=== PATIENT | male | born 1955 | race Caucasian/White ===

== ENCOUNTER 2021-02-15 12:52 | Emergency (ER) | payer SELFPAY ==
--- NOTE | 2021-02-15 13:01 | ED.GENADUL_ITS ---
Discharge Plan Disposition Patient Disposition: HOME Condition: Stable Discharge Details Clinical Impression: Cellulitis of scrotum Primary Care Provider: Unknown,Unknown ED Provider: Francoise Toth Home Meds and New Rx's Prescriptions: New clindamycin HCl 150 mg capsule 450 mg PO QID 10 Days Qty: 120 RF: 0 Continued levothyroxine 50 mcg Tablet 50 mcg PO DAILY RF: 0 bupropion HCl [Wellbutrin XL] 300 mg Tablet Extended Release 24 Hr 300 mg PO DAILY RF: 0 tadalafil [Cialis] 20 mg Tablet 20 mg PO DAILY RF: 0 Discontinued sulfamethoxazole-trimethoprim [Bactrim DS] 800-160 mg Tablet 1 tab PO BID RF: 0 Discharge Instructions Instructions: Cellulitis (ED) Additional Instructions: Keep the area clean and dry and wear loose fitting clothing. If you notice a raised red area in the center, you can apply warm compresses a few times daily for 20 minutes at a time. Drink plenty of fluids and get plenty of rest. Alternate tylenol and motrin as needed and directed for pain. Stop taking the bactrim. Your prescription has been sent electronically to your pharmacy. Call the [facility] to make sure your prescription is ready before pickup. Take the prescription as directed You will receive a call from care management regarding a follow-up appointment with your primary care doctor within the next week for reevaluation and to establish care. You were given urology follow-up information if needed. Return immediately to the emergency department if you develop any worsening or new concerning symptoms. Referrals: Jose Reyna MD [ [facility] STAFF PHYSICIAN] - Discharge Data Discharge Date/Time-TO BE ENTERED AT DEPARTURE: 02/15/21 17:54 Discharge Physician: Francoise Toth Medical Decision Making 65-year-old male presents with left-sided testicular pain for the past 5 days. He is currently on Bactrim for possible epididymitis per a walk-in clinic from 2 days ago. Patient appears comfortable and nontoxic. He has a left superior testicular cellulitis with an open draining wound in center. There is induration but no fluctuance or crepitus. Does not appear consistent with a necrotizing fasciitis. As patient is already on oral antibiotics, will obtain screening labs and ultrasound. Will start clindamycin IV. Labs reviewed and note a normal white blood cell count. Normal electrolytes. Urinalysis negative. US notes L hydrocele and varicocele with findings likely c/w cellulitis but no evidence of abscess, torsion or epididymitis. Pt reassessed and he feels better. He declined pain medication here. Reassessment of the scrotum notes findings c/w cellulitis but no abscess or signs of necrotizing fasciitis. Pt felt good to go home. Will treat with clindamycin. He was given urology follow up information. Pt placed on care management list for a pcp to establish care and for follow up. Usual and customary return precautions given prior to discharge. Medical Records Medical records reviewed: Yes I reviewed the patient's medical records. Imaging Data Radiologic Study: Radiologist's impression: US Scrotum Exam date and time: 02/15/2021 1:21 PM Age: 65 years old Clinical indication: Other: Left testicular pain, R/O torsion, epididymitis TECHNIQUE: Imaging protocol: Real-time ultrasound of the scrotum and contents with color Doppler and image documentation. COMPARISON: No relevant prior studies available. FINDINGS: Right testicle: Right testicle measures 5.1 x 3.8 x 2.4 cm. No mass. No torsion. Normal vascular flow. Left testicle: Left testicle measures 4.7 x 3.5 x 2.0 cm. No torsion. Normal vascular flow. There is a left cystic appendix measuring 12 x 10 x 10 mm. Additionally seen is evidence of left varicocele measuring up to 4 mm with Valsalva maneuver and left hydrocele measuring 4.3 x 1.0 x 2.5 cm. Epididymides: Normal. Scrotum: Left scrotal wall is upper limits of normal measuring 0.8 cm versus 0.4 cm for the right scrotal wall. IMPRESSION: 1. Normal testicles with normal blood flow with left cystic testicular appendix. 2. Left varicocele. 3. Left hydrocele. 4. Asymmetric thickening of the left scrotal wall likely representing edema/hyperemia. Clinical correlation recommended. Lab Data Lab results reviewed: Yes I reviewed the patient's lab results. Labs: Laboratory Tests Range/Units 02/15/21 02/15/21 02/15/21 13:20 13:37 13:37 WBC (4.4-10.8) 10^3/uL 6.16 RBC (4.36-5.78) 10^6/uL 5.17 Hgb (13.5-17.5) g/dL 15.7 Hct (40.0-50.0) % 46.3 MCV (80-95) fL 89.6 MCH (27.0-33.0) pg 30.4 MCHC (32.0-36.0) % 33.9 RDW (11.8-14.1) % 12.4 Plt Count (130-400) 10^3/uL 177 MPV (8.0-11.0) fL 8.1 Immature Gran % 1.1 Neutrophils % 70.3 Lymphocytes % 13.3 Monocytes % 11.7 Eosinophils % 2.8 Basophils % 0.8 Nucleated RBC % % 0 Absolute Neutrophils (1.2-6.7) 10^3/uL 4.33 Absolute Lymphocytes (1.2-3.4) 10^3/uL 0.82 L Absolute Monocytes (0.1-0.8) 10^3/uL 0.72 Absolute Eosinophils (0.0-0.7) 10^3/uL 0.17 Absolute Basophils (0.0-0.2) 10^3/uL 0.05 Sodium (136-145) mmol/L 142 Potassium (3.5-5.1) mmol/L 4.0 Chloride (98-107) mmol/L 105 Carbon Dioxide (21.0-32.0) mmol/L 30.8 Anion Gap (3-11) mmol/L 6.2 BUN (7-18) mg/dL 14 Creatinine (0.70-1.30) mg/dL 1.2 Estimated GFR/1.73 m2 (mL/min/1.73m2) >= 60.00 Glucose (74-106) mg/dL 115 H Calcium (8.5-10.1) mg/dL 8.9 Total Bilirubin (0.2-1.0) mg/dL 0.5 AST (15-37) U/L 22 ALT (16-63) U/L 34 Alkaline Phosphatase (46-116) U/L 67 Total Protein (6.4-8.2) g/dL 7.5 Albumin (3.4-5.0) g/dL 3.8 Urine Color (Yellow) Yellow Urine Clarity (Clear) Clear Urine pH (5-8) 6.0 Ur Specific [place] (1.005-1.025) 1.025 Urine Protein (Negative) mg/dL Negative Urine Ketones (Negative) mg/dL Negative Urine Blood (Negative) Negative Urine Nitrite (Negative) Negative Urine Bilirubin (Negative) Negative Urine Urobilinogen (Up TO 0.2) EU/dL 0.2 Ur Leukocyte Esterase (Negative) Negative Urine Glucose (Negative) mg/dL Negative HPI General Mode of arrival: ambulatory . Date/Time Provider Initiated Documentation: 02/15/21 12:53 . Limitations to Documentation: no limitations . Information obtained by: patient . HPI Narrative: Patient is a 65-year-old male who presents with left-sided scrotal pain for the past 5 days. Patient states his symptoms started as a slight irritation 5 days ago and then he felt an area of swelling in the superior part of the left testicle. He states he was seen at a walk-in clinic 2 days ago and was diagnosed with epididymitis and started on Bactrim. He states he had not had any lab work, urinalysis or imaging at that time. Patient states he has been taking the antibiotic as directed. He presents today as the left-sided testicular pain and swelling is worse. He denies any known fever Related Data Home Medications Medication Instructions Recorded Confirmed bupropion HCl [Wellbutrin XL] 300 mg PO DAILY 02/15/21 02/15/21 clindamycin HCl 450 mg PO QID 10 Days #120 cap 02/15/21 levothyroxine 50 mcg PO DAILY 02/15/21 02/15/21 tadalafil [Cialis] 20 mg PO DAILY 02/15/21 02/15/21 Previous Rx's Medication Instructions Recorded clindamycin HCl 450 mg PO QID 10 Days #120 cap 02/15/21 Allergies Allergy/AdvReac Type Severity Reaction Status Date / Time No Known Allergies Allergy Unverified 02/15/21 13:12 Review of Systems All systems reviewed & are unremarkable except as noted in HPI and below Constitutional Constitutional: Reports as per HPI, Denies chills and Denies fever(s) Eyes Eyes: Denies blurry vision ENT Ears, Nose, Mouth, and Throat: Denies dizziness, Denies sore throat and Denies throat swelling Cardiovascular Cardiovascular: Denies chest pain and Denies dyspnea Respiratory Respiratory: Denies cough and Denies dyspnea Gastrointestinal Gastrointestinal: Denies abdominal pain, Denies diarrhea and Denies vomiting Genitourinary Genitourinary: Denies hematuria, Denies dysuria, Reports scrotal swelling, Reports testicular mass and Reports testicular pain Musculoskeletal Musculoskeletal: Denies back pain and Denies numbness Integumentary/Breasts Skin/Breast: Denies lesions and Denies rash Neurologic Neurologic: Denies dizziness, Denies localized weakness and Denies numbness Allergic/Immunologic Allergic/Immunologic: Denies throat swelling PFSH Medical History (Updated 02/15/21 @ 17:11 by Francoise Toth DO) Depression Hypothyroidism Surgical History (Updated 02/15/21 @ 13:56 by Francoise Toth DO) No significant past surgical history Social History Smoking/Tobacco Use Status: Former Tobacco Use Smoking risk assessment performed?: Yes Alcohol Intake: current Alcohol Intake frequency: 3 or more drinks per day Alcohol type: beer Drug use: Daily Substance use type: marijuana Do you feel safe at home: Yes Do you feel safe in your relationship?: Yes Exam Const General: cooperative, healthy appearing and no acute distress HENMT Head: normal to inspection Face and sinus: normal facial exam Eyes General: appearance normal, both eyes and all related structures Pupils: PERRL EOM: EOM intact bilaterally Neck Neck: normal visual inspection and No submandibular swelling Lymphatic: no lymphadenopathy noted Chest Chest: normal inspection of the chest and no tenderness Resp Effort & Inspection: normal respiratory effort and able to speak in complete sentences Auscultation: clear to auscultation bilaterally Cardio Rate: regular rate Rhythm: regular rhythm GI Inspection: normal to inspection Palpation: soft, not firm, not rigid and nontender Auscultation: normal bowel sounds Other: Penis normal to inspection. Right testicle normal to inspection without tenderness, edema or erythema. There is a bilateral groin area of faint scaling erythema consistent with chronic appearing fungal rash. Male genitals images: 1. Large area of induration and erythema extending from the base of the left scrotum and penis down to the left testicle. This area is tender to palpation. There is no crepitus noted. 2. 1 x 1 cm open wound with yellow pus drainage. There is no obvious fluctuance. Skin General skin exam: no rashes or lesions noted Neuro General: patient alert, patient awake and patient oriented x3 Cognition: normal cognition Speech: speech normal Motor: muscle tone normal throughout Sensory Exam: no sensory deficits noted Extrem General: normal to inspection, full ROM, capillary refill normal, no calf tenderness bilaterally and no edema Psych Appearance: grossly normal Mental Status: mental status grossly normal Speech and Movement: speech and movement normal Affect: normal affect
[2021-02-15 13:04] VITALS: BP 144/90; PULSE 95; RESP 16; TEMP 37.2; O2SAT 96
--- NOTE | 2021-02-15 13:15 | DI.US_ITS ---
Exam(s) US SCROTUM EXAM: US SCROTUM CLINICAL HISTORY: L testicular pain, r/o torsion, epididymitis TECHNIQUE: Ultrasound of the testes performed using grayscale, color, and Doppler imaging. COMPARISON: No exams were available for comparison FINDINGS: RIGHT HEMISCROTUM: The right testicle exhibits normal size and echo architecture with no evidence of intratesticular mas s. Vascular flow was demonstrated within the right testicle, including arterial waveforms. The epididymis appears unremarkable. There are no epididymal head cysts. There is no ipsilateral hydrocele nor varicocele. LEFT HEMISCROTUM: There is thickening of the left hemiscrotal wall (8 millimeters) and this thickened wall is hyperemic . The left testicle exhibits normal size and echo architecture with no evidence of intratesticular mass . Vascular flow is demonstrated within the left testicle, including arterial waveforms. There is a moderate size left hydrocele and there is a small left varicocele. There is a round cystic structure with 10 millimeter diameter in association with the epididymis, con sistent with cystic appendix epididymis The remainder of epididymis appears unremarkable. IMPRESSION: 1. No evidence of testicular mass nor testicular torsion. 2. There is thickening and hyperemia of the wall of the left hemiscrotum as well as a moderate size i psilateral hydrocele and small varicocele. 3. There is a 12 x 10 millimeter cystic structure consistent with cystic appendix epididymis on the l eft side. 4. No significant findings in the right hemiscrotum. DATA REPOSITORY:
[2021-02-15 13:36] LABS: Bilirubin Negative (Negative); Blood Negative (Negative); Clarity Clear (Clear); Glucose Negative (Negative); Ketones Negative (Negative); Leukocyte Esterase Negative (Negative); Nitrite Negative (Negative); Specific Gravity 1.025 (1.005-1.025); Urobilinogen 0.2 EU/dL (Up TO 0.2)
[2021-02-15 13:43] LABS: Abs Immature Grans 0.07 10^3/uL (0.0-0.06); Absolute Basophil Count 0.05 10^3/uL (0.0-0.2); Absolute Eosinophil Count 0.17 10^3/uL (0.0-0.7); Absolute Lymphocyte Count 0.82 10^3/uL (1.2-3.4); Absolute Monocyte Count 0.72 10^3/uL (0.1-0.8); Absolute Neutrophil Count 4.33 10^3/uL (1.2-6.7); Basophils % 0.8; Eosinophils % 2.8; HCT 46.3 % (40.0-50.0); HGB 15.7 g/dL (13.5-17.5); Immature Grans % 1.1; Lymphocytes % 13.3; MCH 30.4 pg (27.0-33.0); MCHC 33.9 % (32.0-36.0); MCV 89.6 fL (80-95); MPV 8.1 fL (8.0-11.0); Monocytes % 11.7; Neutrophils % 70.3; Nucleated RBC 0 %; Platelet Count 177 10^3/uL (130-400); RBC 5.17 10^6/uL (4.36-5.78); RDW 12.4 % (11.8-14.1); WBC 6.16 10^3/uL (4.4-10.8)
[2021-02-15 13:56] LABS: ALT 34 U/L (16-63); AST 22 U/L (15-37); Albumin 3.8 g/dL (3.4-5.0); Alkaline Phosphatase 67 U/L (46-116); Anion Gap 6.2 mmol/L (3-11); Bilirubin, Total 0.5 mg/dL (0.2-1.0); CO2 30.8 mmol/L (21.0-32.0); CREATININE 1.2 mg/dL (0.70-1.30); Calcium 8.9 mg/dL (8.5-10.1); Chloride 105 mmol/L (98-107); Glucose 115 mg/dL (74-106); Sodium 142 mmol/L (136-145); Total Protein 7.5 g/dL (6.4-8.2)
[2021-02-15 14:12] LABS: BUN 14 mg/dL (7-18)
[2021-02-15] MEDS: CLINDAMYCIN 600 MG/50 ML BAG 100 MG IVPB (14:47)
[2021-02-15] MEDS: Normal Saline 500 ML IV (14:48)
--- NOTE | 2021-02-15 15:56 | DI.VRAD_ITS ---
PROCEDURE INFORMATION: Exam: US Scrotum Exam date and time: 02/15/2021 1:21 PM Age: 65 years old Clinical indication: Other: Left testicular pain, R/O torsion, epididymitis TECHNIQUE: Imaging protocol: Real-time ultrasound of the scrotum and contents with color Doppler and image documentation. COMPARISON: No relevant prior studies available. FINDINGS: Right testicle: Right testicle measures 5.1 x 3.8 x 2.4 cm. No mass. No torsion. Normal vascular flow. Left testicle: Left testicle measures 4.7 x 3.5 x 2.0 cm. No torsion. Normal vascular flow. There is a left cystic appendix measuring 12 x 10 x 10 mm. Additionally seen is evidence of left varicocele measuring up to 4 mm with Valsalva maneuver and left hydrocele measuring 4.3 x 1.0 x 2.5 cm. Epididymides: Normal. Scrotum: Left scrotal wall is upper limits of normal measuring 0.8 cm versus 0.4 cm for the right scrotal wall. IMPRESSION: 1. Normal testicles with normal blood flow with left cystic testicular appendix. 2. Left varicocele. 3. Left hydrocele. 4. Asymmetric thickening of the left scrotal wall likely representing edema/hyperemia. Clinical correlation recommended. Dictated and Authenticated by: Baldo Rothman MD. Ordering:LEILANI Owusu MD
[2021-02-15 16:23] VITALS: BP 135/82; PULSE 83; RESP 18; TEMP 36.5; O2SAT 98
[2021-02-15] MEDS: Clindamycin 150 MG CAP, 12 CAPS/BTL 450 MG PO (17:29)
== END 2021-02-15 17:54 | disposition home or self-care (01) ==
PROVIDERS: Emergency Provider Physician Assistant
DX: N49.2 Inflammatory disorders of scrotum (principal)
CPT/HCPCS: 80053; 96361; 96365; 99284; 76870; 81003; 85025

== ENCOUNTER 2022-02-23 16:00 | Outpatient (REF) | payer MEDICAID, SELFPAY ==
[2022-02-23 20:11] LABS: HCT 47.8 % (40.0-50.0); HGB 16.4 g/dL (13.5-17.5); MCH 30.1 pg (27.0-33.0); MCHC 34.3 % (32.0-36.0); MCV 88 fL (80-95); Platelet Count 278 10^3/uL (130-400); RBC 5.45 10^6/uL (4.36-5.78); RDW 12.8 % (11.8-14.1); RDW-SD 41.1 fL
[2022-02-23 20:27] LABS: ALT 38 U/L (16-63); AST 21 U/L (15-37); Albumin 4.7 g/dL (3.4-5.0); Alkaline Phosphatase 65 U/L (46-116); Anion Gap 13.9 mmol/L (3-11); BUN 24 mg/dL (7-18); Bilirubin, Total 0.9 mg/dL (0.2-1.0); CO2 23.1 mmol/L (21.0-32.0); CREATININE 1.2 mg/dL (0.70-1.30); Calcium 9.5 mg/dL (8.5-10.1); Chloride 103 mmol/L (98-107); Glucose 113 mg/dL (74-106); Potassium 4.1 mmol/L (3.5-5.1); Sodium 140 mmol/L (136-145); TSH (W/Ref FT4) 3.57 uIU/mL (0.36-3.74); Total Protein 7.6 g/dL (6.4-8.2)
[2022-02-23 20:38] LABS: Hemoglobin A1C 5.6 % (<5.7)
== END 2022-02-23 16:01 | disposition home or self-care (01) ==
LOC: NCHCN 16:00
PROVIDERS: Visit Provider Nurse Practitioner Family
DX: Z00.00 Encounter for general adult medical examination without abnormal findings (principal); Z12.5 Encounter for screening for malignant neoplasm of prostate; E03.9 Hypothyroidism, unspecified; R73.09 Other abnormal glucose; Z80.42 Family history of malignant neoplasm of prostate
CPT/HCPCS: 80053; 84153; 85027; 83036; 84443

== ENCOUNTER 2022-03-17 01:11 | Outpatient (CLI) | payer MEDICARE, MEDICAID, SELFPAY ==
--- NOTE | 2022-03-17 | DI.US_ITS ---
Exam(s) US THYROID EXAM: US THYROID CLINICAL HISTORY: ENLARGED THYROID, E04.9,HYPOTHYROIDISM,E03.9 TECHNIQUE: Ultrasound performed using standard protocol. COMPARISON: US US SCROTUM from 02/15/2021 FINDINGS: Thyroid ultrasound was performed according to the usual protocol. Right thyroid lobe measures 57 x 2 0 x 23 millimeters and left lobe measures 41 x 16 x 14 millimeters. The isthmus is 2 millimeters in thickness. Thyroid parenchyma is homogeneous with no nodule identified. No cervical adenopathy seen. IMPRESSION: Normal thyroid ultrasound. DATA REPOSITORY:
== END 2022-03-17 01:31 ==
PROVIDERS: Visit Provider Nurse Practitioner Family
DX: E03.9 Hypothyroidism, unspecified (principal); E04.9 Nontoxic goiter, unspecified
CPT/HCPCS: 76536

== ENCOUNTER → 2023-04-07 10:56 | Outpatient (BNVA) | payer MEDICARE, SELFPAY | PROVIDERS: PCP Nurse Practitioner Family; Referring Provider Nurse Practitioner Family; Visit Provider Surgery | DX: Z12.11 Encounter for screening for malignant neoplasm of colon (principal); Z86.010 Personal history of colon polyps | CPT/HCPCS: 99242 ==

== ENCOUNTER 2023-05-31 09:03 | Day surgery (SDC) | payer MEDICARE, SELFPAY ==
[2023-05-31 10:00] VITALS: BP 135/100; PULSE 76; RESP 18; TEMP 36.4; O2SAT 99
[2023-05-31] MEDS: Lactated Ringers 1,000 ML 80 ML IV (10:00)
--- NOTE | 2023-05-31 10:10 | W.SURGCON ---
Date of service: 05/31/23 Time of Service: 10:10 Assessment and Plan Assessment and plan (1) History of colon polyps: Status: Acute Assessment and plan: 68-year-old man with increased risk factors for colorectal cancer due for 5-year surveillance colonoscopy procedure. He is symptom-free. History of Present Illness Narrative: 68-year-old man had a colonoscopy 5 years ago and some polyps were removed at an outside hospital in [place]. There is no family history of colon cancer. He does not have any symptoms. He is on a 5-year surveillance plan. PFSH All Active Problems History of colon polyps (Acute) Elevated glucose (Acute) Elevated PSA (Acute) Enlarged thyroid (Acute) Age-related nuclear cataract, bilateral (Acute) Hypermetropia (Acute) Presbyopia (Acute) Screening for colon cancer (Acute) Cellulitis of scrotum (Acute) Medical History Depression Diverticulosis Erectile dysfunction Family history of prostate cancer Hemorrhoids History of basal cell cancer Hypothyroidism Surgical History History of colonoscopy (~2017) No significant past surgical history Social History Smoking/Tobacco Use Status: Never Smoking risk assessment performed?: Yes Alcohol Intake: current Alcohol Intake frequency: 3 or more drinks per day Alcohol type: beer and wine Drug use: Current Sobriety Substance use type: does not use Housing: house Do you feel safe at home: Yes Do you feel safe in your relationship?: Yes Exam Narrative Exam Narrative: General: Nontoxic, comfortable and interactive Neuro: Alert and oriented x3 Psych: Good mood and affect, good insight and understanding into his conditions Chest: Nonlabored breathing without any active wheezing Heart: Regular Results Last Vital Signs Temp 97.5 F L 05/31/23 10:00 Pulse 76 05/31/23 10:00 Resp 18 05/31/23 10:00 BP 135/100 H 05/31/23 10:00 Pulse Ox 99 05/31/23 10:00
--- NOTE | 2023-05-31 10:11 | W.COLOREPORT ---
Date of service: 05/31/23 Time of Service: 10:11 Colonoscopy Report Procedure Description: Procedures performed: 1. Colonoscopy with cold forceps polypectomy x2 Preoperative diagnosis: Surveillance colonoscopy, colon polyps Postoperative diagnosis: Colon polyps, mild diverticulosis Surgeon: Beryl Dorado Anesthesia: David Indication for procedure: Patient is a 68-year-old man without symptoms who is on a 5-year surveillance plan because of prior adenomatous polyps. No family history of colon cancer. Findings: A small 2-3 mm sessile polyp was removed from the sigmoid colon with cold forceps technique. Another small 2-3 mm sessile polyp was removed from the rectum with cold forceps technique. There were multiple, flat, scattered hyperplastic?appearing polyps in the rectum itself as well. These were left alone. Mild diverticular changes are present in the left colon. Surveillance/follow-up recommendations: Depending on path results of the polyps, a repeat scope in 5 years makes sense since we found new polyps today. Complications: None Blood loss: Minimal Specimens:?? YES Quality of Prep:?? Good Procedure in detail: Written consent was obtained from the patient who was in agreement with the risks, benefits and indications of the procedure.? We went to the endoscopy suite and laid the patient in left lateral decubitus position.? Anesthesia was administered which was tolerated well.? A timeout was performed and when we are all in agreement we began the procedure. Digital rectal exam and visual examination was performed and within normal limits.? A well?lubricated colonoscope was advanced without difficulty all the way to the cecum identified by the ileocecal valve, and triangular folds and appendiceal orifice.? The terminal ileum was briefly intubated and look normal. The scope was then slowly withdrawn.?? Retroflexion was performed in the rectum.? The findings/interventions are noted above. The scope was then removed and the patient tolerated the procedure well and was then taken back to the PACU in hemodynamically stable condition.
--- NOTE | 2023-05-31 10:12 | W.PM.DSUDISC ---
Date of service: 05/31/23 Time of Service: 10:12 Discharge Plan Disposition Patient Disposition: Home Condition: Good Discharge Details Attending Provider: Nilesh Dorado Primary Care Provider: Teresa Rothman Home Meds and New Rx's Prescriptions: Continued cholecalciferol (vitamin D3) 125 mcg (5,000 unit) capsule 125 mcg PO DAILY vitamin B complex [B Complex-Vitamin B12] Tablet 1 tab PO DAILY ascorbic acid (vitamin C) 500 mg capsule 500 mg PO DAILY polyethylene glycol 3350 17 gram/dose powder 238 g PO ONCE Qty: 238 0RF Rx Instructions: take per colonoscopy instructions bisacodyl [Dulcolax (bisacodyl)] 5 mg tablet,delayed release (DR/EC) 5 mg PO ONCE Qty: 4 0RF Rx Instructions: take per colonoscopy instructions levothyroxine 50 mcg Tablet 50 mcg PO DAILY bupropion HCl [Wellbutrin XL] 300 mg Tablet Extended Release 24 Hr 300 mg PO DAILY tadalafil [Cialis] 20 mg Tablet 20 mg PO DAILY Discharge Instructions Stand Alone Forms: Colonoscopy Post Instructions Activity:: Activity as Tolerated Diet:: As Tolerated DS: Diagnosis Discharge Diagnosis (1) History of colon polyps: Status: Acute Asessment and Plan: FINDINGS: Some more small polyps were again found today. These were removed. You should stay on the same surveillance interval and do another colonoscopy in 5 years.
--- NOTE | 2023-05-31 10:47 | W.ANESPRE ---
General Info Date of Service Date Performed: 05/31/23 Height: 5 ft 11 in Weight: 102.5 kg Body Mass Index (BMI): 31.5 Surgical Procedure: Operation Date: 05/31/23 11:05 Proposed Procedure Side Surgeon p Colonoscopy Nilesh Dorado MD Actual Procedure Side Surgeon p Colonoscopy Not Applicable Nilesh Dorado MD Pre-Op Diagnosis Post-Op Diagnosis SCREENING/HISTORY OF POLYPS Meds Allergies and Home Medications Allergies Allergy/AdvReac Type Severity Reaction Status Date / Time No Known Allergies Allergy Unverified 05/31/23 09:58 Home Medication Medication Instructions Recorded bupropion HCl 300 mg 24 hr tablet, 300 mg PO DAILY 02/15/21 extended release (Wellbutrin XL) levothyroxine 50 mcg tablet 50 mcg PO DAILY 02/15/21 tadalafil 20 mg tablet (Cialis) 20 mg PO DAILY 02/15/21 ascorbic acid (vitamin C) 500 mg 500 mg PO DAILY 04/07/23 capsule bisacodyl 5 mg tablet,delayed 5 mg PO ONCE colonscopy bowel prep 04/07/23 release (Dulcolax (bisacodyl)) #4 tabs cholecalciferol (vitamin D3) 125 125 mcg PO DAILY 04/07/23 mcg (5,000 unit) capsule polyethylene glycol 3350 17 238 g PO ONCE colonoscopy prep 04/07/23 gram/dose oral powder #238 grams vitamin B complex (B 1 tab PO DAILY 04/07/23 Complex-Vitamin B12 tablet) Current Visit Medications: Current Medications Generic Name Dose Route Start Last Admin Trade Name Freq PRN Reason Stop Dose Admin Ringer's Solution 1,000 mls @ 80 mls/hr 05/31/23 06:00 05/31/23 10:00 IV 06/29/23 23:59 80 mls/hr INFUSION NANDA Administration IV Miscellaneous Supplies 1 each 05/31/23 06:00 Iv Access IV 06/29/23 23:59 DIRECTED NANDA Sodium Chloride 0 ml 05/31/23 06:00 Normal Saline Flush 10 Ml Syr IV 06/29/23 23:59 PRN PRN Sodium Chloride 0 ml 05/31/23 06:00 Normal Saline 10 Ml Vial IJ 06/29/23 23:59 DIRECTED PRN Sterile Water 0 ml 05/31/23 06:00 Water,Injection,Sterile 10 Ml Vial IJ 06/29/23 23:59 DIRECTED PRN PFSH Active Problems Active Problems: Problem Status Onset Code History of colon polyps Z86.010 Elevated glucose R73.09 Elevated PSA R97.20 Enlarged thyroid E04.9 Age-related nuclear cataract, bilateral H25.13 Hypermetropia H52.00 Presbyopia H52.4 Screening for colon cancer Z12.11 Cellulitis of scrotum N49.2 Medical History Medical History Depression Diverticulosis Erectile dysfunction Family history of prostate cancer Hemorrhoids History of basal cell cancer Hypothyroidism Surgical History Surgical History History of colonoscopy (~2017) No significant past surgical history Tobacco Smoking/Tobacco Use Status: Never Alcohol Alcohol Intake: current Alcohol intake frequency: 3 or more drinks per day Alcohol type: beer and wine Substance Use Substance use: Current Sobriety Substance use type: does not use Vital Signs and Lab Results Vital Signs Most Recent Vital Signs in EMR: Most Recent Vital Signs Temp Pulse Resp BP Pulse Ox 36.4 C L 76 18 135/100 H 99 05/31/23 10:00 05/31/23 10:00 05/31/23 10:00 05/31/23 10:00 05/31/23 10:00 Lab Results Blood Type / Crossmatch: No Data to Display Complete Blood Count: No Data to Display Complete Metabolic Panel: No Data to Display Liver Function Panel: No Data to Display Coagulation Panel: No Data to Display Cardiac Panel: No Data to Display Arterial Blood Gas: No Data to Display Venous Blood Gas: No Data to Display Pancreas Panel: No Data to Display Thyroid Panel: No Data to Display Infectious Disease: No Data to Display Blood Cultures: No Data to Display Toxicology Panel: No Data to Display Anesthesia Assessment and Plan Anesthesia History Personal History: No History of Anesthesia Complications Family History: No Family History of Anesthesia Complications Exercise Tolerance Exercise Tolerance: Metabolic Equivalents>4 Pertinent Negatives Pertinent Negatives: No Symptoms of GERD, No Major Cardiovascular Symptoms or Complaints and No Major Pulmonary Symptoms or Complaints Cardiac & Pulmonary Exam Cardiac Exam: Normal S1/S2 Heart Sounds Pulmonary Exam: Clear Bilateral Breath Sounds Implantable Cardiac Device Does patient have a Pacemaker or an ICD?: No Airway Exam Known Difficult Airway: No Mallampati Class: 1 Mouth Opening: Normal (> 3cm) Thyromental Distance: Greater than 3 cm Facial Hair: Full [place] Neck Range of Motion: Full ROM Neck Circumference: Normal Teeth Condition: Normal Dentition ASA Classification ASA Score: ASA 2 Emergency Case?: No NPO Status NPO Status: NPO Clears >2 hours, Solids >8 hours Anesthesia Plan Resuscitation Status: Full Code Anesthesia Technique: General Anesthesia Airway Planned: Natural Airway Monitors Used: Standard Monitors
[2023-05-31 10:52] VITALS: BMI 31.5
--- NOTE | 2023-05-31 11:19 | BOWEL_PTH ---
PATIENT: Juanpablo Lyons LOC: [facility] U#:[id number] AGE/SX: 68/M ROOM: RE05/31/[address]: Nilesh Dorado : 1955 BED: DIS: 05/31/2023 SPEC #: [id number] RECD: 05/31/23 12:57 STATUS: OMERO REQ #: [id number] AKIKO: 05/31/23 11:[address]: Nilesh Dorado DEPT: Surgical Specimen RECD BY: Ethel Fuentes ENTERED: 05/31/23 12:58 SP TYPE: Bowel OTHR DR: Teresa Rothman Tissues: 1 - BIOPSY BOWEL 2 - BIOPSY BOWEL Procedures: GROSS AND MICRO LEVEL 4 Comments: [id number]
[2023-05-31 11:33] VITALS: BP 109/86; PULSE 83; RESP 18; TEMP 36.6; O2SAT 97
[2023-05-31 12:06] VITALS: BP 126/80; PULSE 60; RESP 16; TEMP 36.4; O2SAT 98
--- NOTE | 2023-05-31 12:07 | W.ANESPOSTOP ---
Postoperative Evaluation Date, Time and Location Date Performed: 05/31/23 Time Performed: 11:35 Patient Location: Day Surgery Unit Vital Signs Most Recent Imported Vital Signs: Most Recent Vital Signs Temp Pulse Resp BP Pulse Ox 36.6 C 83 18 109/86 97 05/31/23 11:33 05/31/23 11:33 05/31/23 11:33 05/31/23 11:33 05/31/23 11:33 Pain Score Most Recent Pain Score: Most Recent Pain Score Pain Level 0 05/31/23 11:33 Assessment Mental Status: Awake (Alert & Oriented to Patient Baseline) Airway and Respiratory Function: Patent airway with normal (patient baseline) respiratory exam Cardiovascular Function: Hemodynamically Stable Hydration Status: Adequately Hydrated Nausea & Vomiting: No Nausea or Vomiting Pain: Pt. Denies Any Pain Peripheral Nerve Block: Patient did not receive a nerve block
== END 2023-05-31 12:24 | disposition home or self-care (01) ==
PROVIDERS: PCP Nurse Practitioner Family; Visit Provider Student in an Organized Health Care Education/Training Program
PROC: 0DJD8ZZ Inspection of Lower Intestinal Tract, Via Natural or Artificial Opening Endoscopic (ICD-10-PCS; CPT 45378; principal; 2023-05-31 11:00)
DX: Z12.11 Encounter for screening for malignant neoplasm of colon (principal); Z86.010 Personal history of colon polyps; K63.5 Polyp of colon; K57.30 Diverticulosis of large intestine without perforation or abscess without bleeding
CPT/HCPCS: 45380; 00123; 88305

== ENCOUNTER 2023-08-12 11:13 | Outpatient (REF) | payer MEDICARE, SELFPAY ==
--- OUTSIDE RECORDS SUMMARY | 2023-08-12 11:20 | XMS_ITS | Continuity of Care Document ---
Author Name Unknown Organization [facility] Ambulatory Clinics Address [address] [place] [address] Encounter [facility] NBR [id number] Date(s): 05/19/22 - 05/19/22 [facility] Ambulatory [facility] [address] [place] [address] [place] Discharge Disposition: Home or Self Care Assessment and Plan Future Appointments Appointment Date:05/19/2022 01:00:00 PM Scheduled Provider: Location:[facility] Appointment Type:COVID-BSTR
[2023-08-12 17:02] LABS: MCH 31.1 pg (27.0-33.0); MCHC 34.8 % (32.0-36.0); MCV 89 fL (80-95); MPV 9.2 fL (8.0-11.0); Platelet Count 226 10^3/uL (130-400); RBC 5.15 10^6/uL (4.36-5.78); RDW 12.7 % (11.8-14.1); RDW-SD 41.9 fL; WBC 4.89 10^3/uL (4.4-10.8)
[2023-08-12 17:33] LABS: ALT 35 U/L (16-63); AST 20 U/L (15-37); Albumin 4.5 g/dL (3.4-5.0); Alkaline Phosphatase 61 U/L (46-116); Anion Gap 9.4 mmol/L (3-11); BUN 17 mg/dL (7-18); Bilirubin, Total 0.6 mg/dL (0.2-1.0); CO2 26.6 mmol/L (21.0-32.0); CREATININE 1.2 mg/dL (0.70-1.30); Calcium 9.6 mg/dL (8.5-10.1); Chloride 105 mmol/L (98-107); Glucose 137 mg/dL (74-106); Potassium 4.9 mmol/L (3.5-5.1); Sodium 141 mmol/L (136-145); TSH 4.11 uIU/mL (0.36-3.74); Total Protein 7.6 g/dL (6.4-8.2)
[2023-08-15 10:13] LABS: PSA, Screening 2.8 ng/mL (<=4.5)
== END 2023-08-12 11:14 | disposition home or self-care (01) ==
LOC: NCHCN 11:13
PROVIDERS: PCP Nurse Practitioner Family; Visit Provider Nurse Practitioner Family
DX: E03.9 Hypothyroidism, unspecified (principal); Z12.5 Encounter for screening for malignant neoplasm of prostate
CPT/HCPCS: 80053; 84153; 85027; 84443

== ENCOUNTER 2024-04-19 20:47 | Outpatient (REF) | payer MEDICARE, SELFPAY ==
[2024-04-19 18:13] LABS: Calculated LDL 103 mg/dL (<100); Cholesterol 188 mg/dL (<200); HDL Cholesterol 51 mg/dL (40-60); Triglyceride 171 mg/dL (<150)
[2024-04-19 19:39] LABS: FREE T4 0.85 ng/dL (0.76-1.46)
== END 2024-04-19 20:48 | disposition home or self-care (01) ==
LOC: NCHCN 20:47
PROVIDERS: PCP Nurse Practitioner Family; Visit Provider Nurse Practitioner Family
DX: E03.9 Hypothyroidism, unspecified (principal)
CPT/HCPCS: 80061; 83036; 84439; 84443

== ENCOUNTER 2024-11-21 14:02 | Outpatient (REF) | payer MEDICARE, SELFPAY ==
[2024-11-22 09:32] LABS: Measles IgG Antibody Positive (See Note); Mumps Antibody IgG Positive (See Note); Rubella IgG Ab (UVM) Positive (See Note)
== END 2024-11-21 14:03 | disposition home or self-care (01) ==
LOC: NCHCN 14:02
PROVIDERS: PCP Nurse Practitioner Family; Visit Provider Nurse Practitioner Family
DX: Z11.59 Encounter for screening for other viral diseases (principal)
CPT/HCPCS: 86735; 86762; 86765

== ENCOUNTER 2024-12-21 20:20 | Outpatient (REF) | payer MEDICARE, SELFPAY ==
[2024-12-21 15:55] LABS: Hemoglobin A1C 5.9 % (<5.7)
[2024-12-21 16:32] LABS: ALT 36 U/L (16-63); AST 20 U/L (15-37); Albumin 4.6 g/dL (3.4-5.0); Alkaline Phosphatase 70 U/L (46-116); Anion Gap 11.2 mmol/L (3-11); BUN 24 mg/dL (7-18); Bilirubin, Total 0.6 mg/dL (0.2-1.0); CO2 24.8 mmol/L (21.0-32.0); CREATININE 1.2 mg/dL (0.70-1.30); Chloride 104 mmol/L (98-107); Estimated GFR 66.28 (mL/min/1.73m2); Glucose 122 mg/dL (74-106); Potassium 4.4 mmol/L (3.5-5.1); Sodium 140 mmol/L (136-145); TSH (W/Ref FT4) 4.28 uIU/mL (0.36-3.74); Total Protein 7.5 g/dL (6.4-8.2)
[2024-12-21 17:01] LABS: FREE T4 0.78 ng/dL (0.76-1.46)
[2024-12-21 22:02] LABS: PSA, Screening 3.2 ng/mL (<=4.5)
== END 2024-12-21 20:21 | disposition home or self-care (01) ==
LOC: NCHCN 20:20
PROVIDERS: PCP Nurse Practitioner Family; Visit Provider Nurse Practitioner Family
DX: R73.03 Prediabetes (principal); Z12.5 Encounter for screening for malignant neoplasm of prostate; E03.9 Hypothyroidism, unspecified
CPT/HCPCS: 80053; 84153; 83036; 84439; 84443